=== PATIENT | female | born 1950 | race Caucasian/White ===

== ENCOUNTER 2023-12-24 10:15 | Inpatient (IN) | payer MEDICARE, MEDICAID ==
[~2023-12-24] VITALS: Ht 162.6 cm; Wt 66.5 kg
[2023-12-24 11:00] LABS: BASOPHILS # (AUTO) 0.1 X10'3 (0-0.2); BASOPHILS % (AUTO) 0.9 % (0-1); EOSINOPHILS # (AUTO) 0.1 X10'3 (0-0.9); HEMATOCRIT 45.7 % (35.0-45.0); HEMOGLOBIN 15.1 g/dl (12.0-16.0); LYMPHOCYTES # (AUTO) 2.4 X10'3 (1.1-4.8); LYMPHOCYTES % (AUTO) 26.7 % (21-51); MEAN CORPUSCULAR HEMOGLOBIN 30.9 PG (27.0-31.0); MEAN CORPUSCULAR VOLUME 93.6 FL (78-98); MEAN PLATELET VOLUME 9.1 FL (7.4-10.4); MONOCYTES # (AUTO) 0.8 X10'3 (0-0.9); MONOCYTES % (AUTO) 8.9 % (2-12); NEUTROPHILS # (AUTO) 5.6 X10'3 (1.8-7.7); NEUTROPHILS % (AUTO) 62.5 % (42-75); PLATELET COUNT 141 X10'3 (140-440); RED BLOOD COUNT 4.88 X10'6 (4.20-5.60); RED CELL DISTRIBUTION WIDTH 17.5 % (11.5-14.5); WHITE BLOOD COUNT 8.9 X10'3 (4.5-11.0)
[2023-12-24 11:16] LABS: ALBUMIN 3.4 G/DL (3.4-5.0); ANION GAP 14 (8-16); BLOOD UREA NITROGEN 16 MG/DL (7-18); BUN/CREATININE RATIO 15.5 (10.0-20.0); CALCIUM 9.1 MG/DL (8.5-10.1); CHLORIDE 104 MMOL/L (99-107); CREATININE 1.03 MG/DL (0.40-0.90); GLUCOSE 97 MG/DL (70-104); POTASSIUM 3.7 MMOL/L (3.5-5.1); PRO BRAIN NATRIURETIC PEPTIDE 15684 PG/ML (0-125); SODIUM 148 MMOL/L (135-145); TOTAL CARBON DIOXIDE 30.4 MMOL/L (24-32); eCRCL 43 ML/MIN; eGFR 53 ML/MIN
--- NOTE | 2023-12-24 11:33 | NUR ---
primary RN Trent clarified fluid bolus orders with MD. Verbal order received to give only 1L over one hour
[2023-12-24] MEDS: normal saline 1000ML IV soln IVB ONE (11:34)
[2023-12-24] MEDS: normal saline 1000ml 1,000 ML IV ONE (11:37)
--- NOTE | 2023-12-24 11:44 | NUR ---
pt had been incontinent of urine, linen change provided along with clean dry brief. Purewick in place
--- NOTE | 2023-12-24 11:58 | NUR ---
Wound pics of left calf taken and placed in chart, wound care consult placed and culture of wound collected.
[2023-12-24] MEDS ORDERED: ondansetron/PF 4mg/2ml inj IV PRN (12:00)
[2023-12-24] MEDS ORDERED: acetaminophen 325mg tablet PO PRN (12:00)
[2023-12-24] MEDS ORDERED: potassium Cl 20 mEq SR tablet PO PRN (12:00)
[2023-12-24] MEDS ORDERED: mag hydrox/Alum hydrox/simeth 30ml oral suspension PO PRN (12:00)
[2023-12-24] MEDS ORDERED: potassium Cl 40MEQ/1/2NS 520ml 520 ML IV PRN (12:00)
[2023-12-24] MEDS ORDERED: magnesium hydroxide 30ml (MOM) UD suspension PO PRN (12:00)
[2023-12-24] MEDS ORDERED: magnesium sulf-water 2g/50mL 50 ML IV PRN (12:00)
[2023-12-24] MEDS ORDERED: magnesium sulf-water 4G/100mL 100 ML IV PRN (12:00)
[2023-12-24] MEDS: PERFLUTREN PROTEIN-A MICROSPHR (Optison) 0.22 MG/ML 3ML VIAL IV ONE (12:04)
[2023-12-24 12:23] LABS: HEMOGLOBIN A1C 5.1 % (4.5-6.2)
--- NOTE | 2023-12-24 12:39 | NUR ---
Spoke with daughter nel solares [phone] and gave a update on patients current status.
--- NOTE | 2023-12-24 13:08 | NUR ---
Patient in room ED 3. I have received report from Trent DUARTE and had the opportunity to ask questions and assume patient care.
[2023-12-24] MEDS ORDERED: metoprolol tartrate 1mg/ml inj IV PRN (13:25)
[2023-12-24] MEDS ORDERED: aminophylline 250mg/10ml inj. IV PRN (13:25)
[2023-12-24] MEDS ORDERED: nitroGLYCERIN 0.4mg SUBLingual tab SL PRN (13:25)
[2023-12-24] MEDS: normal saline 1000ml 1,000 ML IV SCH (13:30)
[2023-12-24 13:35] VITALS: BP 136/95; PULSE 92; RESP 17; TEMP 97.6; O2SAT 96
--- NOTE | 2023-12-24 14:00 | NUR ---
Pt arrived to unit via gurney from ED. VSS. Pt turned for skin check. Pure wick placed. Call light in reach. Pt stable at this time.
[2023-12-24 14:30] LABS: URINE AMPHETAMINE SCREEN NEGATIVE (Neg); URINE BARBITUATE SCREEN NEGATIVE (Neg); URINE BENZODIAZEPINES SCREEN NEGATIVE (Neg); URINE CANNABINOID SCREEN NEGATIVE (Neg); URINE COCAINE SCREEN NEGATIVE (Neg); URINE METHADONE SCREEN NEGATIVE (Neg); URINE OPIATE SCREEN NEGATIVE (Neg); URINE PHENCYCLIDINE SCREEN NEGATIVE (Neg)
[2023-12-24 14:33] LABS: APTT 35 SECONDS (22-32); INR 1.6 INR; PROTHROMBIN TIME 15.8 SECONDS (9.0-12.0)
[2023-12-24 15:00] VITALS: BP 128/87; PULSE 92; RESP 19; TEMP 97.2; O2SAT 99
[2023-12-24] MEDS: lactulose 20gm/30ml cup PO SCH (15:27)
[2023-12-24] MEDS: dextrose 5%-1/2 normal saline 1,000 ML IV SCH (15:30)
[2023-12-24 16:02] LABS: ALANINE AMINOTRANSFERASE 23 U/L (12-78); ALBUMIN 3.3 G/DL (3.4-5.0); ALBUMIN/GLOBULIN RATIO 0.8 (1.1-1.5); ALKALINE PHOSPHATASE 77 IU/L (46-116); BILIRUBIN,TOTAL 2.6 MG/DL (0.1-1.0); TOTAL PROTEIN 7.4 G/DL (6.4-8.2)
[2023-12-24 16:15] LABS: ASPARTATE AMINO TRANSFERASE 83 U/L (10-37); BILIRUBIN,DIRECT 0.9 MG/DL (0-0.3)
[2023-12-24] MEDS ORDERED: CELE-148 PO (17:06)
[2023-12-24] MEDS ORDERED: GABA-535 PO (17:06)
[2023-12-24] MEDS ORDERED: OMEP20CA16 PO (17:06)
[2023-12-24] MEDS ORDERED: HYDR-3972 PO (17:06)
[2023-12-24] MEDS ORDERED: PRED20TA PO (17:06)
[2023-12-24] MEDS ORDERED: DULO60CA65 PO (17:06)
[2023-12-24] MEDS ORDERED: FAMO20TA8 PO (17:06)
[2023-12-24] MEDS ORDERED: METO-395 PO (17:06)
[2023-12-24] MEDS ORDERED: LACT10SO3 PO (17:06)
[2023-12-24 18:00] VITALS: BP 128/89; PULSE 90; RESP 11; TEMP 97.7; O2SAT 98
--- NOTE | 2023-12-24 18:19 | NUR ---
Problems reprioritized. Patient report given, questions answered & plan of care reviewed with Ravinder DUARTE/Kurt DUARTE.
[2023-12-24] MEDS: K and/or MAG REPLACEMENT MC SCH (20:00)
[2023-12-24] MEDS: docusate sod 100mg capsule PO SCH (20:00)
[2023-12-24] MEDS: gabapentin 400mg capsule PO SCH (20:37)
[2023-12-24] MEDS: heparin, porcine 5000 units/ml vial SQ SCH (20:44)
[2023-12-24 22:00] VITALS: BP 95/59; PULSE 84; RESP 18; TEMP 97.6; O2SAT 97
[2023-12-25] VITALS (13 sets, daily range): BP systolic 98–139; BP diastolic 54–96; PULSE 70–90; RESP 11–18; TEMP 96.8–97.9; O2SAT 94–99
--- NOTE | 2023-12-25 06:30 | NUR ---
Patient in room PCU 3009. I have received report from Eric DUARTE/Kurt DUARTE and had the opportunity to ask questions and assume patient care.
[2023-12-25 06:59] LABS: BASOPHILS # (AUTO) 0.1 X10'3 (0-0.2); EOSINOPHILS # (AUTO) 0.2 X10'3 (0-0.9); HEMOGLOBIN 13.5 g/dl (12.0-16.0); LYMPHOCYTES # (AUTO) 2.1 X10'3 (1.1-4.8); LYMPHOCYTES % (AUTO) 29.5 % (21-51); MEAN CORPUSCULAR HEMOGLOBIN 30.2 PG (27.0-31.0); MEAN CORPUSCULAR HGB CONC 32.1 g/dL (33.0-36.5); MEAN PLATELET VOLUME 9.3 FL (7.4-10.4); MONOCYTES # (AUTO) 0.7 X10'3 (0-0.9); MONOCYTES % (AUTO) 9.2 % (2-12); NEUTROPHILS # (AUTO) 4.1 X10'3 (1.8-7.7); NEUTROPHILS % (AUTO) 57.3 % (42-75); PLATELET COUNT 116 X10'3 (140-440); RED BLOOD COUNT 4.47 X10'6 (4.20-5.60); WHITE BLOOD COUNT 7.2 X10'3 (4.5-11.0)
[2023-12-25 07:22] LABS: ALBUMIN 2.6 G/DL (3.4-5.0); ANION GAP 9 (8-16); BLOOD UREA NITROGEN 17 MG/DL (7-18); BUN/CREATININE RATIO 18.9 (10.0-20.0); CALCIUM 7.8 MG/DL (8.5-10.1); CHLORIDE 108 MMOL/L (99-107); CHOLESTEROL 143 MG/DL (0-200); GLUCOSE 107 MG/DL (70-104); HDL CHOLESTEROL 48 MG/DL (35-60); LDL CHOLESTEROL 84 MG/DL (50-100); MAGNESIUM 1.2 MG/DL (1.5-2.4); SODIUM 147 MMOL/L (135-145); TOTAL CARBON DIOXIDE 29.6 MMOL/L (24-32); TRIGLYCERIDES 60 MG/DL (20-135); eCRCL 50 ML/MIN; eGFR 62 ML/MIN
[2023-12-25 07:26] LABS: POTASSIUM 2.8 MMOL/L (3.5-5.1)
--- NOTE | 2023-12-25 07:50 | NUR ---
PAGER ID: [phone] MESSAGE: [id number]. Piedad Herrera. K is 2.8 this AM. Replacement protocol orders already in place. Myah [phone]
[2023-12-25] MEDS ORDERED: LACTULOSE PO SCH (08:00)
[2023-12-25] MEDS: regadenoson 0.4mg/5ml syringe IV PRN (09:35)
--- NOTE | 2023-12-25 11:05 | NUR ---
Malnutrition and nutrition consult: Pt admit for encephalopathy, elevated troponin, hypernatremia, chronic wound to right lower extremity, and EtOH use with a hx of alcoholic liver cirrhosis. Wound care has been consulted pending [facility] note at this time. Pt has been advanced to a heart healthy diet with average PO intake of 25% for first meal. Per RN malnutrition scree pt in unsure of recent wt loss and reports decreased PO intake. Wt this admit is appropriate for age and ~122% of IBW. Pt is currently out for a stress test thus will provide malnutrition interview as appropriate. Pt would benefit from high protein nutrition education though will wait to provide in view of pending wound care note. Addendum: 12/25/23 at [address] Amended: Links added.
[2023-12-25] MEDS: magnesium Cl slow-release 64mg tablet PO PRN (11:36)
[2023-12-25] MEDS: metoprolol succinate 25mg (24-HOUR) SR. Tablet PO SCH (11:36)
[2023-12-25] MEDS: famotidine 20mg tablet PO SCH (11:37)
[2023-12-25] MEDS: pantoprazole 40mg Tablet.DR PO SCH (11:38)
[2023-12-25] MEDS: dextrose 5%-water 1,000 ML IV SCH (11:39)
[2023-12-25] MEDS: duloxetine 30mg CAPSULE.DR PO SCH (11:39)
[2023-12-25] MEDS: potassium Cl 20 mEq SR tablet PO PRN (11:40)
[2023-12-25] MEDS ORDERED: iohexol 350MG/ML 100ml bottle IV ONE (14:02)
[2023-12-25 15:44] LABS: ALBUMIN 2.8 G/DL (3.4-5.0); ANION GAP 16 (8-16); BLOOD UREA NITROGEN 17 MG/DL (7-18); BUN/CREATININE RATIO 18.7 (10.0-20.0); CHLORIDE 105 MMOL/L (99-107); CREATININE 0.91 MG/DL (0.40-0.90); GLUCOSE 91 MG/DL (70-104); SODIUM 144 MMOL/L (135-145); TOTAL CARBON DIOXIDE 23.5 MMOL/L (24-32); eCRCL 49 ML/MIN; eGFR 61 ML/MIN
[2023-12-25 15:46] LABS: POTASSIUM 3.5 MMOL/L (3.5-5.1)
[2023-12-25] MEDS: lactulose 20gm/30ml cup PO SCH (18:00)
[2023-12-25] MEDS: levoFLOXACIN-Levaquin 750MG/D5 150 ML IV SCH (18:00)
--- NOTE | 2023-12-25 19:07 | NUR ---
Problems reprioritized. Patient report given, questions answered & plan of care reviewed with Eric DUARTE.
[2023-12-26 02:00] VITALS: BP 108/78; PULSE 74; RESP 13; TEMP 96.6; O2SAT 96
[2023-12-26 06:00] VITALS: BP 103/72; PULSE 73; RESP 17; TEMP 97.1; O2SAT 99
--- NOTE | 2023-12-26 06:44 | NUR ---
Patient in room PCU 3009. I have received report from FELICIA Castellon and had the opportunity to ask questions and assume patient care.
[2023-12-26 08:22] LABS: BASOPHILS # (AUTO) 0.1 X10'3 (0-0.2); BASOPHILS % (AUTO) 1.2 % (0-1); EOSINOPHILS # (AUTO) 0.4 X10'3 (0-0.9); EOSINOPHILS % (AUTO) 4.8 % (0-6); HEMOGLOBIN 15.3 g/dl (12.0-16.0); LYMPHOCYTES # (AUTO) 2.6 X10'3 (1.1-4.8); LYMPHOCYTES % (AUTO) 31.2 % (21-51); MEAN CORPUSCULAR HEMOGLOBIN 30.3 PG (27.0-31.0); MEAN CORPUSCULAR HGB CONC 31.9 g/dL (33.0-36.5); MEAN CORPUSCULAR VOLUME 95.1 FL (78-98); MEAN PLATELET VOLUME 9.7 FL (7.4-10.4); MONOCYTES # (AUTO) 0.6 X10'3 (0-0.9); MONOCYTES % (AUTO) 7.4 % (2-12); NEUTROPHILS # (AUTO) 4.7 X10'3 (1.8-7.7); NEUTROPHILS % (AUTO) 55.4 % (42-75); PLATELET COUNT 119 X10'3 (140-440); RED BLOOD COUNT 5.04 X10'6 (4.20-5.60); RED CELL DISTRIBUTION WIDTH 17.7 % (11.5-14.5); WHITE BLOOD COUNT 8.4 X10'3 (4.5-11.0)
[2023-12-26 08:34] LABS: BILIRUBIN,URINE SMALL (Neg); CLARITY,URINE SLIGHTLY CLOUDY (Clear); GLUCOSE, URINE NEGATIVE (Neg); KETONES,URINE NEGATIVE (Neg); LEUKOCYTE ESTERASE ,URINE TRACE (Neg); NITRITES, URINE NEGATIVE (Neg); OCCULT BLOOD,URINE TRACE-INTACT (Neg); PH,URINE 6.5 (4.8-8.0); PROTEIN,URINE NEGATIVE (Neg); UROBILINOGEN,URINE 0.2 E.U/dL (0.2-1.0)
[2023-12-26 08:38] LABS: COLOR,URINE DARK YELLOW (Yellow); UA COLLECTION TYPE NON-SPECIFIED
[2023-12-26 08:41] LABS: RBC,URINE 0-2 /HPF (0-2)
[2023-12-26 08:42] LABS: BACTERIA,URINE FEW /HPF (Neg); MUCUS STRANDS NONE SEEN /LPF (Neg); SQUAMOUS EPITHELIAL CELL,UR FEW /LPF (FEW); WBC CLUMPS,URINE FEW /HPF (NEGATIVE); YEAST FEW /HPF (NEGATIVE)
[2023-12-26 10:54] LABS: ALBUMIN 2.7 G/DL (3.4-5.0); ANION GAP 11 (8-16); BLOOD UREA NITROGEN 14 MG/DL (7-18); BUN/CREATININE RATIO 13.3 (10.0-20.0); CALCIUM 7.6 MG/DL (8.5-10.1); CHLORIDE 99 MMOL/L (99-107); CREATININE 1.05 MG/DL (0.40-0.90); GLUCOSE 364 MG/DL (70-104); MAGNESIUM 1.1 MG/DL (1.5-2.4); POTASSIUM 3.6 MMOL/L (3.5-5.1); SODIUM 133 MMOL/L (135-145); TOTAL CARBON DIOXIDE 23.3 MMOL/L (24-32); eCRCL 42 ML/MIN; eGFR 52 ML/MIN
[2023-12-26 11:00] VITALS: BP 97/55; PULSE 91; RESP 14; TEMP 97.3; O2SAT 96
--- NOTE | 2023-12-26 14:05 | NUR ---
F/u: Pt seen at bedside for verbal/written high protein liver cirrhosis nutrition education. Pt states she's received nutrition information in the past through was quite receptive to information provide during time of visit. Pt states her appetite was normal aside from the last two days prior to coming in to the hospital. Pt states she doesn't typically weighs herself but does not think she has lost weight and UBW is 145-150 pounds of which she last weighed 145 pounds about 3 weeks ago at the doctors office. If wt this admit of 66.5kg/m2 (146 pounds) is correct then no recent wt loss has occurred based on pt's reporting. Pt appeared nourished with no evident signs of fat or muscle wasting at this time. Pt lacks a minimum of two malnutrition criteria. Addendum: 12/26/23 at [address] Amended: Links added.
[2023-12-26 15:00] VITALS: BP 88/64; PULSE 73; RESP 12; TEMP 97.9
[2023-12-26] MEDS: cefepime 1GM/NS ADD-VANTAGE 100 ML IV SCH (15:52)
[2023-12-26 18:00] VITALS: BP 97/70; PULSE 73; RESP 18; TEMP 98; O2SAT 97
--- NOTE | 2023-12-26 18:24 | NUR ---
Problems reprioritized. Patient report given, questions answered & plan of care reviewed with Mike DUARTE.
[2023-12-26] MEDS: gabapentin 300mg capsule PO SCH (20:00)
--- NOTE | 2023-12-26 22:59 | NUR ---
Patient BP 88/64 MAP 72. Asymptomatic. notified MD Tod Ley. Will continue to monitor and will consider IVF if symptomatic and below 80 systolic per MD.
[2023-12-27 06:00] VITALS: BP 92/69; PULSE 75; RESP 17; TEMP 97.9; O2SAT 94
--- NOTE | 2023-12-27 06:44 | NUR ---
Patient in room PCU 3009. I have received report from FELICIA Castellon and had the opportunity to ask questions and assume patient care.
[2023-12-27 07:04] LABS: BASOPHILS # (AUTO) 0.1 X10'3 (0-0.2); EOSINOPHILS # (AUTO) 0.4 X10'3 (0-0.9); EOSINOPHILS % (AUTO) 4.4 % (0-6); HEMATOCRIT 44.1 % (35.0-45.0); HEMOGLOBIN 14.1 g/dl (12.0-16.0); LYMPHOCYTES # (AUTO) 2.1 X10'3 (1.1-4.8); LYMPHOCYTES % (AUTO) 24.6 % (21-51); MEAN CORPUSCULAR HEMOGLOBIN 30.1 PG (27.0-31.0); MEAN PLATELET VOLUME 9.6 FL (7.4-10.4); MONOCYTES # (AUTO) 0.7 X10'3 (0-0.9); MONOCYTES % (AUTO) 8.3 % (2-12); NEUTROPHILS # (AUTO) 5.3 X10'3 (1.8-7.7); NEUTROPHILS % (AUTO) 61.7 % (42-75); PLATELET COUNT 102 X10'3 (140-440); RED BLOOD COUNT 4.69 X10'6 (4.20-5.60); RED CELL DISTRIBUTION WIDTH 17.1 % (11.5-14.5); WHITE BLOOD COUNT 8.6 X10'3 (4.5-11.0)
[2023-12-27 07:16] LABS: ALBUMIN 2.5 G/DL (3.4-5.0); ANION GAP 12 (8-16); BLOOD UREA NITROGEN 16 MG/DL (7-18); BUN/CREATININE RATIO 16.5 (10.0-20.0); CALCIUM 7.9 MG/DL (8.5-10.1); CHLORIDE 107 MMOL/L (99-107); CREATININE 0.97 MG/DL (0.40-0.90); GLUCOSE 100 MG/DL (70-104); MAGNESIUM 1.2 MG/DL (1.5-2.4); POTASSIUM 4.8 MMOL/L (3.5-5.1); SODIUM 138 MMOL/L (135-145); TOTAL CARBON DIOXIDE 19.3 MMOL/L (24-32); eCRCL 46 ML/MIN; eGFR 57 ML/MIN
[2023-12-27] MEDS: atorvastatin 20mg tablet PO SCH (08:16)
[2023-12-27] MEDS: lactulose 20gm/30ml cup PO SCH (10:54)
[2023-12-27 11:00] VITALS: BP 88/57; PULSE 67; RESP 19; TEMP 97.1; O2SAT 95
--- NOTE | 2023-12-27 14:07 | NUR ---
PRESSURE ULCER EDUCATION: DEFINITION: A pressure ulcer is an area of skin that breaks down when you stay in one position too long. The constant pressure against the skin reduces the blood flow to that area and the affected tissue dies. CAUSES: "Being bedridden or in a wheelchair "Fragile skin "Having a chronic condition, such as diabetes or vascular disease "Inability to move certain parts of your body without assistance "Older age "Incontinence of urine or stool SYMPTOMS: "A reddened area that DOES NOT turn white when pressed on - this can be the beginning of a pressure ulcer "A blister, deep sore or a crater - these can be advanced pressure ulcers FIRST AID: "Relieve the pressure on this area "Keep the area clean and dry "Call your primary doctor if you see any of the above symptoms "DO NOT massage the area "DO NOT use a donut shaped or ring shaped pillow- these actually interfere with the blood flow and cause complications PREVENTION: "Check for pressure ulcers everyday "Change position at least every two hours to relieve pressure "Use items that help relieve pressure- pillows, sheepskin, foam padding, and powders. "Keep skin clean and dry "Eat healthy well balanced meals "Exercise daily IF YOU SEE ANY OF THESE SYMPTOMS WHILE IN THE HOSPITAL - TELL YOUR NURSE IMMEDIATELY. IF YOU SEE ANY OF THESE SYMPTOMS WHILE AT HOME OR HAVE ANY QUESTIONS OR CONCERNS ABOUT PRESSURE ULCERS - CALL YOUR PRIMARY DOCTOR IMMEDIATELY. Addendum: 12/27/23 at 1407 by Benita Benjamin LVN Amended: Links added.
[2023-12-27 15:00] VITALS: BP 89/41; PULSE 68; RESP 17; TEMP 97.3; O2SAT 94
[2023-12-27] MEDS: normal saline 1000ml 1,000 ML IV SCH (15:31)
[2023-12-27] MEDS: piperacillin/tazo 4.5gm/100ml 100 ML IV SCH (15:32)
[2023-12-27 18:00] VITALS: BP 100/75; PULSE 82; RESP 21; TEMP 97.1; O2SAT 93
[2023-12-27] MEDS ORDERED: magnesium Cl slow-release 64mg tablet PO PRN (18:20)
[2023-12-27] MEDS ORDERED: magnesium sulf-water 2g/50mL 50 ML IV PRN (18:20)
[2023-12-27] MEDS ORDERED: potassium Cl 40MEQ/1/2NS 520ml 520 ML IV PRN (18:20)
[2023-12-27] MEDS ORDERED: potassium Cl 20 mEq SR tablet PO PRN ×2 (18:20)
[2023-12-27] MEDS ORDERED: magnesium sulf-water 4G/100mL 100 ML IV PRN (18:20)
--- NOTE | 2023-12-27 18:42 | NUR ---
Problems reprioritized. Patient report given, questions answered & plan of care reviewed with Mike DUARTE.
[2023-12-28 02:00] VITALS: BP 93/65; PULSE 78; RESP 18; TEMP 96.5; O2SAT 95
[2023-12-28 05:37] LABS: HBSAG SCREEN Negative (Negative); HEP B CORE AB, IGM Negative (Negative); HEP B CORE AB, TOT Negative (Negative)
[2023-12-28 05:37] LABS: HEP A AB, IGM Negative (Negative); HEPATITIS C VIRUS ANTIBODY Non Reactive (Non Reactive)
--- NOTE | 2023-12-28 06:41 | NUR ---
Patient in room U 3009. I have received report from Amilcar and had the opportunity to ask questions and assume patient care. Addendum: 12/28/23 at 0642 by Yogesh Henry RN Amended: Links added.
[2023-12-28 07:45] VITALS: BP 112/67; PULSE 74; RESP 18; TEMP 97; O2SAT 96
[2023-12-28] MEDS: famotidine 20mg tablet PO SCH (08:20)
[2023-12-28] MEDS: magnesium oxide 400mg tablet PO SCH (08:20)
[2023-12-28] MEDS: sod chloride 0.9% 10ml flush syringe IV SCH (08:21)
[2023-12-28 08:49] VITALS: RESP 13; O2SAT 96
[2023-12-28 09:57] VITALS: BP 104/70; PULSE 76; RESP 17; TEMP 97.5
[2023-12-29] MEDS ORDERED: lactulose 20gm/30ml cup PO SCH (08:00)
== END 2023-12-28 15:09 | DRG 871 ==
LOC: ER 10:16 → ED HOLD 12:00 → PCU 3S 14:20
PROVIDERS: ADMIT Internal Medicine; ATTEND Internal Medicine
PROC: 4A02XM4 Measurement of Cardiac Total Activity, External Approach (ICD-10-PCS; principal; 2023-12-25)
PROC: 3E033HZ Introduction of Radioactive Substance into Peripheral Vein, Percutaneous Approach (ICD-10-PCS; 2023-12-25)
PROC: B32T1ZZ Computerized Tomography (CT Scan) of Left Pulmonary Artery using Low Osmolar Contrast (ICD-10-PCS; 2023-12-25)
PROC: B3201ZZ Computerized Tomography (CT Scan) of Thoracic Aorta using Low Osmolar Contrast (ICD-10-PCS; 2023-12-25)
PROC: B32S1ZZ Computerized Tomography (CT Scan) of Right Pulmonary Artery using Low Osmolar Contrast (ICD-10-PCS; 2023-12-25)
PROC: 05HF33Z Insertion of Infusion Device into Left Cephalic Vein, Percutaneous Approach (ICD-10-PCS; 2023-12-27)
DX: A41.9 Sepsis, unspecified organism (principal); G93.41 Metabolic encephalopathy; I21.A1 Myocardial infarction type 2; E87.0 Hyperosmolality and hypernatremia; E87.20 Acidosis, unspecified; L97.828 Non-pressure chronic ulcer of other part of left lower leg with other specified severity; K70.30 Alcoholic cirrhosis of liver without ascites; I87.8 Other specified disorders of veins; I73.9 Peripheral vascular disease, unspecified; I11.0 Hypertensive heart disease with heart failure; F10.20 Alcohol dependence, uncomplicated; K76.82 Hepatic encephalopathy; E87.6 Hypokalemia; S81.801A Unspecified open wound, right lower leg, initial encounter; X58.XXXA Exposure to other specified factors, initial encounter; I50.9 Heart failure, unspecified; F41.9 Anxiety disorder, unspecified; Z88.2 Allergy status to sulfonamides; G62.9 Polyneuropathy, unspecified; Z88.1 Allergy status to other antibiotic agents; Z79.899 Other long term (current) drug therapy; Z87.11 Personal history of peptic ulcer disease; Z90.710 Acquired absence of both cervix and uterus; Y93.89 Activity, other specified; Y92.89 Other specified places as the place of occurrence of the external cause; Y99.8 Other external cause status; B96.5 Pseudomonas (aeruginosa) (mallei) (pseudomallei) as the cause of diseases classified elsewhere; R65.20 Severe sepsis without septic shock
CPT/HCPCS: 36415; 71045; 71275; 78452; 80048; 80061; 80076; 80305; 81001; 82103; 82140; 82948; 83036; 83605; 83735; 83880; 84484; 85025; 85610; 85651; 85730; 86704; 86705; 86709; 86803; 87040; 87070; 87077; 87081; 87186; 87340; 87522; 93005; 93017; 93306; 97116; 97161; 97530; 97535; 99285; A6196; A6253; A6258; A6446; A6449; A9500; G0378; J0692; J1644; J1956; J2543; J2785; J7030; J7040; J7070; Q9967